=== PATIENT | male | born 1990 | race Caucasian/White ===

== ENCOUNTER 2016-12-08 08:19 | Emergency (ER) | payer OTHER ==
[~2016-12-08] VITALS: Ht 175.3 cm; Wt 80.0 kg
[~2016-12-08 08:19] MED LIST: ELIM TOP
[2016-12-08 08:20] VITALS: Ht 175.3 cm; Wt 80.0 kg
[2016-12-08] MEDS ORDERED: DIPHTH/TET/ACEL PERTUSS (ADULT) 0.5 ML VIAL IM* ONE (08:30)
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
[2016-12-08] MEDS ORDERED: IBUPROFEN 600 MG TAB PO ONE (09:00)
--- NOTE | 2016-12-08 09:29 | RADRPT ---
PROCEDURE: XR Knee. CLINICAL INDICATION: Knee trauma/injury TECHNIQUE: 3 views of the right knee were obtained. COMPARISON: None. FINDINGS: No fracture is identified. The osseous structures are intact. The joint spaces are preserved. No gross joint effusion or soft tissue swelling is visualized. IMPRESSION: No evidence of acute osseous abnormality. RPTAT: VV .Harsh Marie MD, MD Date Time Electronically viewed and signed by .Harsh Marie MD, MD on 12/08/2016 09:28 .O/
[2016-12-08] MEDS ORDERED: IBUP-1542 PO (09:34)
== END 2016-12-08 10:54 | disposition home or self-care (01) ==
LOC: FTE 08:19
DX: S80.01XA Contusion of right knee, initial encounter (principal); V03.10XA Pedestrian on foot injured in collision with car, pick-up truck or van in traffic accident, initial encounter; Z23 Encounter for immunization
CPT/HCPCS: 73562; 90471; 90715

== ENCOUNTER 2016-12-16 09:07 | Emergency (ER) | payer OTHER ==
[~2016-12-16] VITALS: Ht 172.7 cm; Wt 83.0 kg
[~2016-12-16 09:07] MED LIST changes: +IBUP-1542 PO
[2016-12-16 09:10] VITALS: Ht 172.7 cm; Wt 83.0 kg
[2016-12-16] MEDS ORDERED: IBUPROFEN 800 MG TAB PO ONE (09:30)
--- NOTE | 2016-12-16 10:13 | RADRPT ---
PROCEDURE: XR Shoulder. CLINICAL INDICATION: Left shoulder pain. TECHNIQUE: Three views of the left shoulder are available for review. COMPARISON: None available FINDINGS: The osseous structures, articular spaces, and surrounding soft tissues of the left shoulder are inta ct. No acute fracture or dislocation is seen. The glenohumeral joint is unremarkable. The acromioc lavicular joint is grossly unremarkable. The visualized portions of the left clavicle and upper lef t rib cage are equally unremarkable. IMPRESSION: 1. Unremarkable left shoulder x-ray series. 2. No acute fracture or dislocation is seen. RPTAT: GG .Marvin Shin MD, Date Time Electronically viewed and signed by .Marvin Shin MD, on 12/16/2016 10:12 .L/
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
[2016-12-16] MEDS ORDERED: IBUP-1542 PO (10:49)
[2016-12-16 11:24] VITALS: BP 134/90; PULSE 76; RESP 16; TEMP 98.9
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
== END 2016-12-16 11:25 | disposition home or self-care (01) ==
LOC: FTE 09:07
DX: S49.92XA Unspecified injury of left shoulder and upper arm, initial encounter (principal); V02.10XA Pedestrian on foot injured in collision with two- or three-wheeled motor vehicle in traffic accident, initial encounter
CPT/HCPCS: 73030; 73060